=== PATIENT | male | born 2000 | race Caucasian/White ===

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

== ENCOUNTER 2018-01-02 08:03 | Outpatient (CLI) | payer OTHER ==
--- NOTE | 2018-01-02 10:50 | MRI ---
MRI OF LEFT KNEE PERFORMED WITHOUT CONTRAST ENHANCEMENT: HISTORY: Previous knee injury with persistent pain. COMPARISON: A plain film examination of the left knee is dated 11/11/17 done at [facility] and an older film d one at [facility] and [facility] dated 07/31/17 which shows a lateral tibial plateau fracture which appeared to be more acute at that time. There is a significant degree of motion artifact on this study which significantly degrades detail fo r evaluation of soft tissue structures. I believe that the anterior and posterior cruciate ligaments are intact. There is some increased sig nal change within the posterior horn of the medial meniscus in the red zone region. It comes very cl ose to the inferior articular surface. It is difficult for me to exclude this representing a menisca l tear, although it may just represent some internal signal change and motion artifact significantly impedes evaluation. The lateral meniscus is felt to be normal in appearance. Medial and lateral collateral ligaments are intact. Iliotibial band region is unremarkable. There is a lateral tibial plateau fracture. The fracture involves the more posterior portion of the tibial plateau with a more sagittally slightly obliquely oriented fracture line involving the posteri or and more lateral margin of the tibial plateau with some mild depression of several millimeters of this portion of the tibial plateau, again difficult to assess due to the motion. Fairly minimal allison a change is seen associated with this compatible with the older nature of this fracture. The patellar articular cartilage appears intact. Medial and lateral patellar retinaculum and quadric eps and patellar tendons are normal. IMPRESSION: 1. Healing slightly depressed lateral tibial plateau fracture involving the posterior aspect of the lateral tibial plateau. It appears to be slightly depressed and is difficult to assess due to signif icant motion artifact. Given the degree of motion, I would suggest consideration for CT for better e valuation of fracture alignment. There are fairly minimal edema changes with most of the high T2 sig nal associated with the sagittally and slightly obliquely oriented fracture line. 2. Increased signal change within the red zone region of the posterior horn of the medial meniscus. This could represent internal and intrameniscal signal change. It is difficult to exclude a red zon e tear. It is difficult to assess due to the significant motion artifact. POS: [facility]
== END 2018-01-02 08:04 | disposition home or self-care (01) ==
LOC: SCSMRI 08:03
PROVIDERS: ATTEND Chiropractor
DX: S87.82XA Crushing injury of left lower leg, initial encounter (principal); S82.142D Displaced bicondylar fracture of left tibia, subsequent encounter for closed fracture with routine healing

== ENCOUNTER 2018-01-09 14:07 | Outpatient (CLI) | payer OTHER | END 2018-01-09 14:08 | disposition home or self-care (01) | LOC: BICCT 14:07 | PROVIDERS: ATTEND Chiropractor | DX: S87.82XA Crushing injury of left lower leg, initial encounter (principal); Z87.81 Personal history of (healed) traumatic fracture ==